=== PATIENT | male | born 1965 | race Caucasian/White ===

== ENCOUNTER 2018-01-23 01:12 | Emergency (ER) | payer MEDICAID ==
[~2018-01-23] VITALS: Ht 177.8 cm; Wt 74.8 kg
[2018-01-23] MEDS ORDERED: LORazepam 2MG/ML-1ML VIAL ONE (01:40)
[2018-01-23] MEDS ORDERED: HALOPERIDOL LACTATE 5 MG/ML INJ VIAL ONE (01:40)
[2018-01-23 01:43] LABS: Basophils # (auto) 0.1 uL; Basophils % (auto) 0.7 % (0.0-2.0); Eosinophils # (auto) 0.1 uL; Eosinophils % (auto) 0.8 % (0.0-7.0); Hematocrit 41.8 % (41.0-53.0); Hemoglobin 14.1 g/dL (13.5-17.5); Lymphocytes # (auto) 1.2 uL; Lymphocytes % (auto) 14.8 % (10.0-50.0); Mean Corpuscular Hemoglobin 32.3 pg (28.0-32.0); Mean Corpuscular Hgb Conc. 33.8 g/dL (32.0-36.0); Mean Corpuscular Volume 95.5 fL (80.0-100.0); Monocytes # (auto) 0.7 uL; Monocytes % (auto) 9.6 % (0.0-12.0); Neutrophils # (auto) 5.8 uL; Neutrophils % (auto) 74.1 % (37.0-80.0); Platelet Count (auto) 292 10^3/uL (140-450); Red Blood Cells 4.37 10^6/uL (4.5-5.90); White Blood Cell 7.8 10^3/uL (4.4-10.8)
[2018-01-23] MEDS ORDERED: LORazepam 2MG/ML-1ML VIAL IV ONE (01:45)
[2018-01-23] MEDS ORDERED: TETANUS IMMUNE GLOBULIN 250 UNIT/ML SYRG IM ONE (01:45)
[2018-01-23] MEDS ORDERED: HALOPERIDOL LACTATE 5 MG/ML INJ VIAL IM ONE (01:45)
[2018-01-23 01:58] LABS: Albumin 3.9 g/dL (3.4-5.0); BUN/Creatinine Ratio 10.4; Calcium 8.3 mg/dL (8.5-10.1); Potassium 3.5 mmol/L (3.5-5.1)
[2018-01-23 02:01] LABS: Bilirubin, Total 0.5 mg/dL (0.2-1.0); Total Protein 7.6 g/dL (6.4-8.2)
[2018-01-23] MEDS ORDERED: TETANUS-DIPTH-ACEL PERTUSSIS 0.5ML SYRG IM ONE (02:15)
[2018-01-23 02:48] LABS: Amphetamine Screen, Urine POSITIVE (NEGATIVE); Barbiturate Scree,Urine NEGATIVE (NEGATIVE); Benzodiazephine Screen, Urine NEGATIVE (NEGATIVE); Cannabinoid Screen, Urine POSITIVE (NEGATIVE); Cocaine Screen, Urine NEGATIVE (NEGATIVE); Opiate Scree,Urine NEGATIVE (NEGATIVE); Phencyclidine Screen, Urine NEGATIVE (NEGATIVE)
[2018-01-23 03:15] LABS: Urine Amorphous Crystal FEW /hpf (None Seen); Urine Bacteria FEW /hpf (None Seen); Urine Blood 1+ /uL (Negative); Urine Mucus FEW (None Seen); Urine Specific Gravity 1.025 (1.001-1.035); Urine WBC 1 /hpf (0 - 3)
[2018-01-23] MEDS ORDERED: cefTRIAXone 1GM/10ml IVPUSH 10 ML IV ONE (04:30)
[2018-01-23 06:50] VITALS: BP 138/100
== END 2018-01-23 09:34 | disposition home or self-care (01) ==
LOC: ER 01:12 → EDBD 01:12 → ER 09:34
DX: S01.01XA Laceration without foreign body of scalp, initial encounter (principal); F15.10 Other stimulant abuse, uncomplicated; J44.9 Chronic obstructive pulmonary disease, unspecified; F17.210 Nicotine dependence, cigarettes, uncomplicated; X58.XXXA Exposure to other specified factors, initial encounter; Y93.89 Activity, other specified; Y99.8 Other external cause status; Y92.524 Gas station as the place of occurrence of the external cause
CPT/HCPCS: 12002; 36415; 70450; 72125; 80053; 80307; 80320; 81001; 85025; 90471; 90715; 96372; 96374; 96375; 99285; J0696; J1630; J2060

== ENCOUNTER 2025-03-31 09:35 | Inpatient (IN) | payer MEDICAID, OTHER ==
[~2025-03-31] VITALS: Ht 175.3 cm; Wt 75.4 kg
[2025-03-31] MEDS: ADENOSINE 6 MG/2 ML INJ IV ONE ×3 (10:05→10:40)
--- NOTE | 2025-03-31 10:20 | ED.PDOC ---
SOB-HPI HPI Comments This is a 60 year-old male with a Hx of COPD, who presents to the ED via EMS for SOB as of yesterday. Per EMS, patient was found outside of a gas station, [facility] for SOB. Per EMS, patients BP was elevated at 203/115. Upon arrival to the ED, patient is SAT at 97% on nebulizer treatment. There are no further complaints or modifying factors at this time. Chief Complaint: Shortness of Breath Time Seen by MD: 09:44 Primary Care Provider: UNKNOWN Reviewed notes: Medications, Allergies Information Source: Patient, Emergency Med Personnel Mode of Arrival: EMS Severity: Moderate Timing: Days Duration: Since onset Past Medical History PAST MEDICAL HISTORY: COPD Surgical History: Denies all surgeries Family History Family History: Unknown Social History Smoker: Cigarettes, Greater Than 1 Pack/Day Alcohol: Occasionally Drugs: Denies Drug Use Lives In: Home Constitutional: denies: chills, diaphoresis, fatigue, fever, malaise, sweats, weakness, others EENTM: denies: blurred vision, double vision, ear bleeding, ear discharge, ear drainage, ear pain, ear ringing, eye pain, eye redness, hearing loss, mouth pain, mouth swelling, nasal discharge, nose bleeding, nose congestion, nose pain, photophobia, tearing, throat pain, throat swelling, voice changes, others Respiratory: reports: SOB at rest, shortness of breath, SOB with excertion; denies: cough, hemoptysis, orthopnea, stridor, wheezing, others Cardiovascular: denies: chest pain, dizzy spells, diaphoresis, Dyspnea on exertion, edema, irregular heart beat, left arm pain, lightheadedness, palpitations, PND, syncope, others Gastrointestinal: denies: abdomen distended, abdominal pain, blood streaked bowels, constipated, diarrhea, dysphagia, difficulty swallowing, hematemesis, melena, nausea, poor appetite, poor fluid intake, rectal bleeding, rectal pain, vomiting, others Genitourinary: denies: burning, dysuria, flank pain, frequency, hematuria, incontinence, penile discharge, penile sore, pain, testicle pain, testicle swelling, urgency, others Neurological: denies: dizziness, fainting, headache, left sided numbness, left sided weakness, numbness, paresthesia, pre-existing deficit, right sided numbness, right sided weakness, seizure, speech problems, tingling, tremors, weakness, others Musculoskeletal: denies: back pain, gout, joint pain, joint swelling, muscle pain, muscle stiffness, neck pain, others Integumetry: denies: bruises, change in color, change in hair/nails, dryness, laceration, lesions, lumps, rash, wounds, others Allergic/Immunocompromised: denies: Difficulty Healing, Frequent Infections, Hives, Itching, others Hematologic/Lymphatic: denies: anemia, blood clots, easy bleeding, easy bruising, swollen glands, others Endocrine: denies: excessive hunger, excessive sweating, excessive thirst, excessive urination, flushing, intolerance to cold, intolerance to heat, unexplained weight gain, unexplained weight loss, others Psychiatric: denies: anxiety, bipolar disorder, depression, hopeless, panic disorder, schizophrenia, sleepless, suicidal, others All Other Systems: Reviewed and Negative Physical Exam General Appearance: Moderate Distress HEENT: Normal ENT Inspection, Pharynx Normal, TMs Normal Neck: Full Range of Motion, Non-Tender, Normal, Normal Inspection Respiratory: Respiratory Distress, Other (Coarse breath sounds) Cardiovascular: Irregular, Tachycardia Breast Exam: Deferred Gastrointestinal: No Organomegaly, Non Tender, No Pulsatile Mass, Normal Bowel Sounds, Soft Genitalia: Deferred Pelvic: Deferred Rectal: Deferred Extremities: No calf tenderness, Normal capillary refill, Normal inspection, Normal range of motion, Non-tender, No pedal edema Musculoskeletal : Apperance: Normal Neurologic: Alert, sequins winder II-XII nml as Tested, No Motor Deficits, Normal Affect, Normal Mood, No Sensory Deficits Cerebellar Function: NOT DONE Reflexes: NOT DONE Skin: Dry, Normal Color, Warm Peripheral Pulses: 3+ Radial (R), 3+ Radial (L) Lymphatic: No Adenopathy Was a procedure done? Was a procedure done?: No Differential Dx Differential Diagnosis: Anxiety, Asthma, Bronchitis, CHF, COPD, Panic Attack, Sinusitis X-Ray, Labs, Meds, VS Vital Signs Date Time Temp Pulse Resp B/P (MAP) Pulse Ox O2 Delivery O2 Flow Rate FiO2 03/31/25 12:15 98 Nasal Cannula* 2 28 03/31/25 12:00 82 17 141/98 (112) 100 03/31/25 10:36 100 Nasal Cannula* 2 28 03/31/25 10:24 157 03/31/25 10:00 97.6 153 25 153/97 (115) 100 97.6 03/31/25 09:50 154 Lab Test 03/31/25 11:03 Range/Units White Blood Count 15.4 H 4.4-10.8 10^3/uL Red Blood Count 4.54 4.5-5.90 10^6/uL Hemoglobin 14.5 13.5-17.5 g/dL Hematocrit 43.3 41.0-53.0 % Mean Corpuscular Volume 95.2 80.0-100.0 fL Mean Corpuscular Hemoglobin 31.8 28.0-32.0 pg Mean Corpuscular Hemoglobin Concent 33.4 32.0-36.0 g/dL Red Cell Distribution Width 13.7 11.8-14.3 % Platelet Count 246 140-450 10^3/uL Mean Platelet Volume 7.6 6.9-10.8 fL Neutrophils (%) (Auto) 87.6 H 37.0-80.0 % Lymphocytes (%) (Auto) 4.4 L 10.0-50.0 % Monocytes (%) (Auto) 7.6 0.0-12.0 % Eosinophils (%) (Auto) 0.1 0.0-7.0 % Basophils (%) (Auto) 0.3 0.0-2.0 % Neutrophils # (Auto) 13.5 H 1.6-8.6 10 ^3/uL Lymphocytes # (Auto) 0.7 0.4-5.4 10 ^3/uL Monocytes # (Auto) 1.2 0-1.3 10 ^3/uL Eosinophils # (Auto) 0 0-0.8 10 ^3/uL Basophils # (Auto) 0 0-0.2 10 ^3/uL Nucleated Red Blood Cells 0.0 % Sodium Level 138 136-145 mmol/L Potassium Level 4.1 3.5-5.1 mmol/L Chloride Level 102 98-107 mmol/L Carbon Dioxide Level 26 20-31 mmol/L Anion Gap 10 5-15 Blood Urea Nitrogen 10 9-23 mg/dL Creatinine 0.85 0.700-1.30 mg/dL Glomerular Filtration Rate Calc 100 >90 mL/min BUN/Creatinine Ratio 11.8 10.0-20.0 Serum Glucose 159 H 74-106 mg/dL Calcium Level 9.2 8.7-10.4 mg/dL Total Bilirubin 0.7 0.2-1.0 mg/dL Aspartate Amino Transferase (AST) 23 13-40 U/L Alanine Aminotransferase (ALT) 35 7-40 U/L Alkaline Phosphatase 86 46-116 U/L Total Protein 7.2 5.7-8.2 g/dL Albumin 4.1 3.2-4.8 g/dL Current Medications Medications (Trade) Dose Ordered Sig/Ian Route Start Time Stop Time Status Last Admin Adenosine (Adenosine) 6 mg ONCE ONCE IV 03/31/25 10:45 03/31/25 10:46 DC 03/31/25 10:36 Amiodarone HCl 100 ml @ 600 mls/hr ONCE ONCE IV 03/31/25 10:45 03/31/25 10:54 DC 03/31/25 10:36 Amiodarone HCl 250 ml @ 33.33 mls/ hr Q7H31M ONCE IV 03/31/25 10:45 03/31/25 18:15 03/31/25 10:52 Sodium Chloride 1,000 ml @ 1,000 mls/hr Q1H ONCE IV 03/31/25 11:00 03/31/25 11:59 DC 03/31/25 10:53 Sodium Chloride 1,000 ml @ 150 mls/hr Q6H40M ONCE IV 03/31/25 11:00 03/31/25 17:39 03/31/25 11:00 Patient alert. Placed on oxygen. Came in because of shortness a breath. Answering questions. EKG reviewed does show rapid heart rate. Was given adenosine. Rhythm is atrial fibrillation with flutter. Placed amiodarone. Establish intravenous access. Was given fluids. Explained to the patient. Continue monitoring. Time of 1ST Reevaluation: 11:02 Reevaluation 1ST: Unchanged Patient Education/Counseling: Diagnosis, Treatment Family Education/Counseling: No Family Present SEPSIS Sepsis Screen Physician Orders Amiodarone 450mg/250ml Ae (Cordarone) (03/31/25 10:45) Amiodarone 450mg/250ml Ae (Cordarone) (03/31/25 16:45) Electrocardigram (03/31/25 10:45) Electrocardigram (03/31/25 11:45) Electrocardigram (03/31/25 13:45) Chest Portable (03/31/25 10:47) Urinalysis (03/31/25 10:47) Sodium Chloride 0.9% (03/31/25 11:00) Vital Signs Date Time Temp Pulse Resp B/P (MAP) Pulse Ox O2 Delivery O2 Flow Rate FiO2 03/31/25 12:15 98 Nasal Cannula* 2 28 03/31/25 12:00 82 17 141/98 (112) 100 03/31/25 10:36 100 Nasal Cannula* 2 28 03/31/25 10:24 157 03/31/25 10:00 97.6 153 25 153/97 (115) 100 97.6 03/31/25 09:50 154 Laboratory Tests Test 03/31/25 11:03 White Blood Count 15.4 10^3/uL (4.4-10.8) H Medications Medications Dose Ordered Sig/Ian Route Start Time Stop Time Status Last Admin Dose Admin Adenosine 6 mg ONCE ONCE IV 03/31/25 10:45 03/31/25 10:46 DC 03/31/25 10:36 Amiodarone HCl 100 ml @ 600 mls/hr ONCE ONCE IV 03/31/25 10:45 03/31/25 10:54 DC 03/31/25 10:36 Amiodarone HCl 250 ml @ 33.33 mls/ hr Q7H31M ONCE IV 03/31/25 10:45 03/31/25 18:15 03/31/25 10:52 Sodium Chloride 1,000 ml @ 150 mls/hr Q6H40M ONCE IV 03/31/25 11:00 03/31/25 17:39 03/31/25 11:00 Sodium Chloride 1,000 ml @ 1,000 mls/hr Q1H ONCE IV 03/31/25 11:00 03/31/25 11:59 DC 03/31/25 10:53 Departure 1 Departure Time of Disposition: 12:31 Impression: Primary Impression: Acute respiratory failure Qualified Codes: J96.01 - Acute respiratory failure with hypoxia Additional Impression: Atrial fibrillation Qualified Codes: I48.0 - Paroxysmal atrial fibrillation Disposition: ADMITTED INPATIENT Admit to: Med Surg Condition: Guarded e-Prescriptions No Active Prescriptions or Reported Meds Critical Care Note Critical Care Time?: Yes (90 min-critical care time only) Stability Stability form required: No Heart Score Heart Score: Heart Score Response (Comments) Value History Moderate Suspicious 1 EKG Normal 0 Age 45-64 1 Risk Factors 1 or 2 risk factors 1 Troponin Normal limit 0 Total 3 I personally scribed for HANNY WILSON MD ([facility]) on 03/31/25 at 10:20. Electronically submitted by Madelyn Sinha ([facility]). HANNY WILSON MD Mar 31, 2025 10:20
[2025-03-31] MEDS: AMIODARONE HCL (50 MG/ ML) 3 ML VIAL IV ONE (10:35)
[2025-03-31 10:36] VITALS: O2SAT 100
[2025-03-31] MEDS: AMIODARONE BOLUS KIT 100 ML IV ONE ×2 (10:36→10:40)
[2025-03-31] MEDS: SODIUM CHLORIDE 0.9% 1,000 ML IV ONE ×2 (10:53→11:00)
[2025-03-31 11:11] LABS: Hematocrit 43.3 % (41.0-53.0); Hemoglobin 14.5 g/dL (13.5-17.5); Mean Corpuscular Hemoglobin 31.8 pg (28.0-32.0); Mean Corpuscular Volume 95.2 fL (80.0-100.0); Nucleated Red Blood Cells % 0.0 %
--- NOTE | 2025-03-31 11:17 | DVH ---
CLINICAL HISTORY: sob TECHNIQUE: Single view of the chest was obtained. COMPARISON: None FINDINGS: Evaluation is limited, given the lung apices were excluded on this study. The heart size and pulmonary vasculature are normal. The lungs are clear. IMPRESSION: Limited exam with no acute cardiopulmonary process seen. Please read above.
[2025-03-31 11:28] LABS: Alanine Aminotransferase 35 U/L (7-40); Albumin 4.1 g/dL (3.2-4.8); Anion Gap 10 (5-15); BUN/Creatinine Ratio 11.8 (10.0-20.0); Blood Urea Nitrogen 10 mg/dL (9-23); Calcium 9.2 mg/dL (8.7-10.4); Carbon Dioxide 26 mmol/L (20-31); Chloride 102 mmol/L (98-107); Potassium 4.1 mmol/L (3.5-5.1); Sodium 138 mmol/L (136-145); Total Protein 7.2 g/dL (5.7-8.2)
[2025-03-31 11:29] LABS: Bilirubin, Total 0.7 mg/dL (0.2-1.0); Glucose 159 mg/dL (74-106)
[2025-03-31 11:46] LABS: Alkaline Phosphatase 86 U/L (46-116)
[2025-03-31] MEDS: IOHEXOL 350 MG/ML 100ML IJ ONE (12:56)
[2025-03-31] MEDS ORDERED: CEFEPIME 1GM/50ML 50 ML IV ONE (13:00)
[2025-03-31] MEDS ORDERED: ENOXAPARIN SOD 100 MG/1 ML SYRINGE SC ONE (13:00)
[2025-03-31] MEDS ORDERED: ONDANSETRON HCL 4 MG/2 ML VIAL IV PRN (13:00)
[2025-03-31] MEDS ORDERED: MORPHINE SULFATE INJ 2 MG/ml SYRG IV PRN ×2 (13:00)
[2025-03-31] MEDS ORDERED: ACETAMINOPHEN 325 MG TAB PO PRN (13:00)
[2025-03-31] MEDS ORDERED: NITROGLYCERIN 0.4 MG SL TAB SL PRN (13:00)
[2025-03-31 13:23] LABS: Triglycerides 54.0 mg/dL (< 150)
[2025-03-31 13:24] LABS: INR 1.03 (0.9-1.15); Magnesium 1.8 mg/dL (1.6-2.6); Partial Thromboplastin Time 29.5 SEC (24.5-34.5); Prothrombin Time 10.9 sec (9.3-11.8)
[2025-03-31 13:25] LABS: Cholesterol 174.0 mg/dL (< 200); HDL Cholesterol 96.0 mg/dL (40-59)
--- NOTE | 2025-03-31 13:33 | DVHHPRES ---
History of Present Illness Resident Creating Document: ANGIE SANON History of Present Illness Sergio Nelson is a 60 year old male patient who presents to the ED with chief complaint of sudden dyspnea Functional Class IV which started approximately 24 hours, it has been constant, did not relieved with inhalers, prompting his visit to the ED. Patient reports associated chills, productive cough with yellow phlegm and hearing wheezing. Patient has had previous episodes similar to this one, but have been relieved by inhalers. Last hospitalization due to COPD exacerbation was over 10 years ago. Denies any other associated symptom. Past medical history: Asthma/emphysema/COPD Surgical history: Left knee surgery Family history: Mother had breast cancer, father had "leg" cancer Social history: Lives in [place], he is homeless (he has not know next of kin, he has a brother in [place] but does not have a phone number). Ex tobacco abuse (30 pack-year history of smoking), currently smokes marijuana. Occasionally use meth. Drinks one beer a day. Denies any other drug abuse. Allergies: Penicillin Home medication: Albuterol Patient seen and examined at bedside. Currently has no new complaint. Admitted for further evaluation. Past Medical History Per HPI Past Surgical History Per HPI Family History Per HPI Past Social History Per HPI Review of Systems Review of Systems Per HPI Allergies: Coded Allergies: Penicillins (Verified Allergy, Unknown, 06/05/15) Medications Current Medications Medications Dose Ordered Sig/[facility] Route Start Time Stop Time Status Last Admin Dose Admin Amiodarone HCl 250 ml @ 16.66 mls/ hr Q15H1M IV 03/31/25 16:45 Enoxaparin Sodium 80 mg Q12HR SC 03/31/25 22:00 Acetaminophen 325 mg Q4HP PRN PO 03/31/25 13:00 Ondansetron HCl 4 mg Q4HP PRN IV 03/31/25 13:00 Morphine Sulfate 2 mg Q4HPRN PRN IV 03/31/25 13:00 Nitroglycerin 0.4 mg Q5MINP PRN SL 03/31/25 13:00 Morphine Sulfate 2 mg Q30M PRN IV 03/31/25 13:00 Azithromycin 250 ml @ 125 mls/hr DAILY IV 04/01/25 10:00 Cefepime HCl 50 ml @ 12.5 mls/hr Q8HR IV 03/31/25 14:00 UNV Methylprednisolone Sodium Succinate 40 mg BID IV 03/31/25 22:00 Exam Vital Signs Vital Signs Date Time Temp Pulse Resp B/P (MAP) Pulse Ox O2 Delivery O2 Flow Rate FiO2 03/31/25 12:15 98 Nasal Cannula* 2 28 03/31/25 12:00 82 17 141/98 (112) 03/31/25 10:00 97.6 97.6 Exam Patient lying in bed, in no acute distress General: Lucid, afebrile, mucosae are moist Cardiovascular: Normal S1 and S2. No murmurs, gallops or rubs Respiratory: Normal ventilation mechanics. Diffuse wheezing with coarse rhonchus predominantly on right base. Abdomen: Soft, nontender, no organomegaly, normal bowel sounds MSK/skin: Mobilizes 4 limbs. Skin is dry and warm Neurological: Oriented in 3 spheres. No motor no sensitive deficits. Pupils are isocoric and reactive Labs/Xrays Labs Test 03/31/25 11:03 Range/Units White Blood Count 15.4 H 4.4-10.8 10^3/uL Red Blood Count 4.54 4.5-5.90 10^6/uL Hemoglobin 14.5 13.5-17.5 g/dL Hematocrit 43.3 41.0-53.0 % Mean Corpuscular Volume 95.2 80.0-100.0 fL Mean Corpuscular Hemoglobin 31.8 28.0-32.0 pg Mean Corpuscular Hemoglobin Concent 33.4 32.0-36.0 g/dL Red Cell Distribution Width 13.7 11.8-14.3 % Platelet Count 246 140-450 10^3/uL Mean Platelet Volume 7.6 6.9-10.8 fL Neutrophils (%) (Auto) 87.6 H 37.0-80.0 % Lymphocytes (%) (Auto) 4.4 L 10.0-50.0 % Monocytes (%) (Auto) 7.6 0.0-12.0 % Eosinophils (%) (Auto) 0.1 0.0-7.0 % Basophils (%) (Auto) 0.3 0.0-2.0 % Neutrophils # (Auto) 13.5 H 1.6-8.6 10 ^3/uL Lymphocytes # (Auto) 0.7 0.4-5.4 10 ^3/uL Monocytes # (Auto) 1.2 0-1.3 10 ^3/uL Eosinophils # (Auto) 0 0-0.8 10 ^3/uL Basophils # (Auto) 0 0-0.2 10 ^3/uL Nucleated Red Blood Cells 0.0 % Prothrombin Time 10.9 9.3-11.8 sec Prothrombin Time INR 1.03 0.9-1.15 Activated Partial Thromboplast Time 29.5 24.5-34.5 SEC Sodium Level 138 136-145 mmol/L Potassium Level 4.1 3.5-5.1 mmol/L Chloride Level 102 98-107 mmol/L Carbon Dioxide Level 26 20-31 mmol/L Anion Gap 10 5-15 Blood Urea Nitrogen 10 9-23 mg/dL Creatinine 0.85 0.700-1.30 mg/dL Glomerular Filtration Rate Calc 100 >90 mL/min BUN/Creatinine Ratio 11.8 10.0-20.0 Serum Glucose 159 H 74-106 mg/dL Hemoglobin A1c 5.6 <5.7 % A1C Calcium Level 9.2 8.7-10.4 mg/dL Phosphorus Level 2.5 2.4-5.1 mg/dL Magnesium Level 1.8 1.6-2.6 mg/dL Total Bilirubin 0.7 0.2-1.0 mg/dL Aspartate Amino Transferase (AST) 23 13-40 U/L Alanine Aminotransferase (ALT) 35 7-40 U/L Alkaline Phosphatase 86 46-116 U/L Total Protein 7.2 5.7-8.2 g/dL Albumin 4.1 3.2-4.8 g/dL Triglycerides Level 54 < 150 mg/dL Cholesterol Level 174 < 200 mg/dL LDL Cholesterol 61 < 100 mg/dL HDL Cholesterol 96 H 40-59 mg/dL SEPSIS Sepsis Screen Date sepsis recognized/suspect: Mar 31, 2025 Time Sepsis recognized/suspect: 1212 Recent Procedure: No On Antibiotic Therapy: No Respiratory Rate >20: No Heart Rate >90: No Temp<36 C (96.8 F) or >38.3 C: No SBP <90 or MAP <65 mmHG: No New Acute Mental Status Change: No Is the patient on CPAP, BIPAP,: No Physician Orders Amiodarone 450mg/250ml Ae (Cordarone) (03/31/25 10:45) Amiodarone 450mg/250ml Ae (Cordarone) (03/31/25 16:45) Electrocardigram (03/31/25 10:45) Electrocardigram (03/31/25 11:45) Electrocardigram (03/31/25 13:45) Chest Portable (03/31/25 10:47) Urinalysis (03/31/25 10:47) Sodium Chloride 0.9% (03/31/25 11:00) Ct Angio Chest Contrast (03/31/25 12:50) Vitamin D, 25-Hydroxy (03/31/25 12:50) Vitamin B12 (03/31/25 12:50) Thyroid Stimulating Hormone (03/31/25 12:50) Lactic Acid W/ Reflex Order (03/31/25 12:50) Drug Screen (03/31/25 12:50) Enoxaparin Sodium (Lovenox) (03/31/25 22:00) Admit (03/31/25 12:52) Code Status (03/31/25 12:52) Acetaminophen Tablet (Tylenol Tablet) (03/31/25 13:00) Ondansetron Hcl (Zofran) (03/31/25 13:00) Complete Blood Count (04/01/25 04:00) Comprehensive Metabolic Panel (04/01/25 04:00) Npo (Nothing By Mouth) Diet (03/31/25 Lunch) Echo 2d Mode Cardiac Dop (03/31/25 12:52) Morphine Sulfate Injection (03/31/25 13:00) Nitroglycerin Sublingual (Ntrostat Subli (03/31/25 13:00) Morphine Sulfate Injection (03/31/25 13:00) Oxygen By Nasal Cannula (03/31/25 12:52) Stat Ekg For Chest Pain (03/31/25 12:52) Notify Md Of Changes From Base (03/31/25 12:52) Employee Benefits Specialist For 24 Hours (03/31/25 12:52) Emergency Dysrhythmia Protocol (03/31/25 12:52) Rhythm Strips Once Every Shift (03/31/25 12:52) Blood Culture (03/31/25 12:52) Respiratory Culture W/ Gs (03/31/25 12:52) Covid19 Antigen Nereida (03/31/25 ) Rapid Influenza A&B (03/31/25 12:52) Mrsa Screen (03/31/25 12:52) Urine Bacterial Culture (03/31/25 12:52) Azithromycin 500mg/250ml (Zithromax 500m (03/31/25 13:00) Azithromycin 500mg/250ml (Zithromax 500m (04/01/25 10:00) Cefepime 1gm/50ml (Maxipime 1gm/50ml) (03/31/25 14:00) Cefepime 1gm/50ml (Maxipime 1gm/50ml) (03/31/25 13:00) Methylprednisolone Sod Succ (Solu Medrol (03/31/25 22:00) Vital Signs Date Time Temp Pulse Resp B/P (MAP) Pulse Ox O2 Delivery O2 Flow Rate FiO2 03/31/25 12:15 98 Nasal Cannula* 2 28 03/31/25 12:00 82 17 141/98 (112) 100 03/31/25 12:00 89 03/31/25 10:36 100 Nasal Cannula* 2 28 03/31/25 10:24 157 03/31/25 10:00 97.6 153 25 153/97 (115) 100 97.6 03/31/25 09:50 154 Laboratory Tests Test 03/31/25 11:03 White Blood Count 15.4 10^3/uL (4.4-10.8) H Medications Medications Dose Ordered Sig/Ian Route Start Time Stop Time Status Last Admin Dose Admin Adenosine 6 mg ONCE ONCE IV 03/31/25 10:45 03/31/25 10:46 DC 03/31/25 10:36 6 MG Amiodarone HCl 100 ml @ 600 mls/hr ONCE ONCE IV 03/31/25 10:45 03/31/25 10:54 DC 03/31/25 10:36 600 MLS/HR Amiodarone HCl 250 ml @ 33.33 mls/ hr Q7H31M ONCE IV 03/31/25 10:45 03/31/25 18:15 03/31/25 10:52 33.33 MLS/HR Sodium Chloride 1,000 ml @ 150 mls/hr Q6H40M ONCE IV 03/31/25 11:00 03/31/25 17:39 03/31/25 11:00 150 MLS/HR Sodium Chloride 1,000 ml @ 1,000 mls/hr Q1H ONCE IV 03/31/25 11:00 03/31/25 11:59 DC 03/31/25 10:53 1,000 MLS/HR Assessment/Plan Assessment/Plan ASSESSMENT Acute respiratory failure Sepsis due to pneumonia Community-acquired pneumonia Gram-positive/Gram-negative COPD exacerbation Newly diagnosed paroxysmal atrial flutter RVR (chads Vasc 0) - secondary hypercoagulability state Rule out pulmonary embolism Polysubstance abuse Homelessness PLAN Patient admitted to telemetry Currently on oxygen therapy with nasal cannula 2 L/min Currently under empiric IV antibiotic (azithromycin and cefepime) Indicated IV fluids, IV steroids and bronchodilators. Patient on amiodarone drip, currently converted to sinus rhythm. Indicated therapeutic enoxaparin. Recommend and cessation of polysubstance abuse (methamphetamine, marijuana in alcohol) Ordered angio CT of chest to rule out pulmonary embolism Consulted social group worker for evaluation of placement. Goals of care discussed with patient for over 18 minutes: Full code status Discussed plan with Dr. Medrano, patient and nurses: Patient admitted to telemetry. Currently on oxygen therapy, IV antibiotics, IV fluids, IV steroids therapeutic enoxaparin, amiodarone drip and bronchodilators. Ordered angio CT to rule out pulmonary embolism. Pending social service evaluation. Patient has poor prognosis. Plan discussed with: Patient, Other (Nurses) My Orders Orders - ANGIE SANON RESIDENT Procedure Category Date Status Time Ct Angio Chest CT 03/31/25 Taken Contrast 12:50 Vitamin D, 25-Hydroxy LAB 03/31/25 In Process 12:50 Vitamin B12 LAB 03/31/25 In Process 12:50 Thyroid Stimulating LAB 03/31/25 In Process Hormone 12:50 Lactic Acid W/ Reflex LAB 03/31/25 Logged Order 12:50 Drug Screen LAB 03/31/25 Logged 12:50 Enoxaparin Sodium PHA 03/31/25 In Process (Lovenox) 22:00 Admit ADMIT 03/31/25 Transmitted 12:52 Code Status CODE 03/31/25 Transmitted 12:52 Acetaminophen Tablet PHA 03/31/25 In Process (Tylenol Tablet) 13:00 Ondansetron Hcl PHA 03/31/25 In Process (Zofran) 13:00 Complete Blood Count LAB 04/01/25 Verified 04:00 Comprehensive LAB 04/01/25 Verified Metabolic Panel 04:00 Npo (Nothing By DIET 03/31/25 Transmitted Mouth) Diet Lunch Echo 2d Mode Cardiac US 03/31/25 Logged DOP 12:52 Morphine Sulfate PHA 03/31/25 In Process Injection 13:00 Nitroglycerin PHA 03/31/25 In Process Sublingual (Ntrostat 13:00 Morphine Sulfate PHA 03/31/25 In Process Injection 13:00 Oxygen By Nasal RT 03/31/25 Transmitted Cannula 12:52 Stat Ekg For Chest WILLAM 03/31/25 In Process Pain 12:52 Notify Of Changes WILLAM 03/31/25 In Process From Base 12:52 Employee Benefits Specialist For WILLAM 03/31/25 In Process 24 Hours 12:52 Emergency Dysrhythmia WILLAM 03/31/25 In Process Protocol 12:52 Rhythm Strips Once WILLAM 03/31/25 In Process Every Shift 12:52 Blood Culture FARHEEN 03/31/25 Logged 12:52 Respiratory Culture FARHEEN 03/31/25 Logged W/ Gs 12:52 Covid19 Antigen Nereida LAB 03/31/25 Logged Rapid Influenza A&B LAB 03/31/25 Logged 12:52 Mrsa Screen FARHEEN 03/31/25 Logged 12:52 Urine Bacterial FARHEEN 03/31/25 Logged Culture 12:52 Azithromycin PHA 03/31/25 In Process 500mg/250ml 13:00 Azithromycin PHA 04/01/25 In Process 500mg/250ml 10:00 Cefepime 1gm/50ml PHA 03/31/25 Logged (Maxipime 1gm/50ml) 14:00 Cefepime 1gm/50ml PHA 03/31/25 Logged (Maxipime 1gm/50ml) 13:00 Methylprednisolone PHA 03/31/25 In Process Sod Succ (Solu Medrol 22:00 Date of Service: Mar 31, 2025 Billing Provider: ROCK MEDRANO MD Common Visit Codes: [id number] INP/OBS CARE (HIGH) Secondary Visit Codes: [id number] CARE PLAN 30 MINUTES ANGIE SANON Mar 31, 2025 13:33
[2025-03-31] MEDS: SODIUM CHLORIDE 0.9% 250 ML IV ONE (13:45)
[2025-03-31] MEDS: SODIUM CHLORIDE 0.9% 1,000 ML IV SCH (13:45)
--- NOTE | 2025-03-31 13:48 | DVH ---
Indication: Rule out PE Technique: CT axial images of the chest are obtained with intravenous contrast per CT angiogram protocol. Coronal and sagittal reformats were obtained. Radiation Dose Information: CTDI volume is 6.68 mGy. Dose-length product is 299.9 mGy*cm Comparison: None FINDINGS: No filling defect within the main left and right pulmonary arteries. Segmental and subsegmental branches suboptimally opacified/ characterized. Trachea patent. No pneumothorax. Mild right upper lobe ground-glass opacities /tree-in-bud nodularity. No lobar consolidation present. Right lower lobe atelectasis. Pulmonary emphysematous changes. The heart is normal in size. Right hilar lymph node measuring 1.6 cm. Left hilar lymph node measuring 1.0 cm. No supraclavicular or axillary lymphadenopathy. No aggressive osseous process. IMPRESSION: No evidence for large pulmonary embolism. Mild right upper lobe ground-glass opacities with tree-in-bud nodularity which can be secondary to infectious, inflammatory, hypoventilatory etiologies. Hilar lymphadenopathy which can be secondary to infectious, inflammatory, neoplastic etiology. Other findings as described
[2025-03-31 13:53] VITALS: BP 141/98; PULSE 82; RESP 17; TEMP 97.6; O2SAT 98
[2025-03-31] MEDS: CEFEPIME 1GM/50ML 50 ML IV SCH (14:00)
[2025-03-31 14:25] LABS: Lactic Acid w/Reflex 2.4 mmol/L (0.4-2.0)
[2025-03-31 14:35] LABS: Urine Protein, UAD Negative (Negative)
[2025-03-31 14:51] LABS: Amphetamine Screen, Urine Pos (NEGATIVE); Barbiturate Scree,Urine Neg (NEGATIVE); Benzodiazephine Screen, Urine Neg (NEGATIVE); Cannabinoid Screen, Urine Pos (NEGATIVE); Cocaine Screen, Urine Neg (NEGATIVE); Opiate Scree,Urine Neg (NEGATIVE); Phencyclidine Screen, Urine Neg (NEGATIVE)
[2025-03-31] MEDS: methylPREDNISolone SOD SUCC 40 MG/ML VL IV ONE (15:13)
[2025-03-31] MEDS: ENOXAPARIN SOD 80 MG/0.8ML SYRINGE SC ONE (15:14)
[2025-03-31] MEDS: AZITHROMYCIN 500MG/250ML 250 ML IV ONE (15:28)
[2025-03-31 19:18] VITALS: PULSE 72; RESP 28; O2SAT 97
[2025-03-31] MEDS: LEVALBUTEROL HCL 1.25 MG/3 ML NEB NEB SCH (19:18)
[2025-03-31] MEDS: IPRATROPIUM BROM 0.5 MG/2.5ML INH SOL NEB SCH (19:18)
[2025-03-31 19:24] VITALS: PULSE 70; RESP 25; O2SAT 99
[2025-03-31 21:56] LABS: COVID19 ANTIGEN SOFIA FIA NEGATIVE (NEGATIVE)
[2025-03-31] MEDS: ENOXAPARIN SOD 80 MG/0.8ML SYRINGE SC SCH (23:07)
[2025-03-31] MEDS: methylPREDNISolone SOD SUCC 40 MG/ML VL ONE (23:07)
[2025-03-31] MEDS: methylPREDNISolone SOD SUCC 40 MG/ML VL IV SCH (23:07)
[2025-03-31 23:36] VITALS: BP 149/96; PULSE 67; RESP 19; TEMP 98.6; O2SAT 93
[2025-03-31 23:56] VITALS: PULSE 69; RESP 18; O2SAT 94
[2025-04-01] VITALS (19 sets, daily range): BP systolic 135–174; BP diastolic 80–103; PULSE 67–89; RESP 17–24; TEMP 97.4–98.4; O2SAT 90–100
[2025-04-01 05:32] LABS: Hematocrit 41.4 % (41.0-53.0); Hemoglobin 14.0 g/dL (13.5-17.5); Mean Corpuscular Hemoglobin 31.7 pg (28.0-32.0); Mean Corpuscular Volume 93.5 fL (80.0-100.0); Nucleated Red Blood Cells % 0.0 %
[2025-04-01 05:47] LABS: Alanine Aminotransferase 29 U/L (7-40); Alkaline Phosphatase 80 U/L (46-116); Anion Gap 8 (5-15); BUN/Creatinine Ratio 14.1 (10.0-20.0); Blood Urea Nitrogen 13 mg/dL (9-23); Calcium 9.3 mg/dL (8.7-10.4); Carbon Dioxide 27 mmol/L (20-31); Chloride 102 mmol/L (98-107); Potassium 4.1 mmol/L (3.5-5.1); Sodium 137 mmol/L (136-145); Total Protein 7.1 g/dL (5.7-8.2)
[2025-04-01 05:48] LABS: Albumin 4.1 g/dL (3.2-4.8); Bilirubin, Total 0.6 mg/dL (0.2-1.0)
[2025-04-01 05:49] LABS: Glucose 151 mg/dL (74-106)
--- NOTE | 2025-04-01 07:12 | ECG ---
[facility] Test Date: 2025-03-31 Test Time: 09:50:38 Pat Name: NICOLE SHARMA Department: ED Room: 0239T A Gender: M Trimmer Helper: arpan : 1965 Requested By: HANNY WILSON Order Number: [id number] Reading MD: Keven Hobbs Measurements Intervals [place] Rate: 154 P: 0 MS: 0 QRS: -67 QRSD: 78 T: 33 QT: 286 QTc: 458 Interpretive Statements Atrial flutter/fibrillation LAD, consider left anterior fascicular block Anterior infarct, old Nonspecific T abnormalities, inferior leads Baseline wander in lead(s) V2 Electronically Signed On 04-03-2025 15:00:46 PST by Keven Hobbs Please click the below link to view image of tracing.
--- NOTE | 2025-04-01 09:20 | DVHSR ---
APPROVED REPORT EXAM: LIMITED Two-dimensional and M-mode echocardiogram with Doppler and color Doppler. Blood Pressure: 141/98 mmHg INDICATION afib RISK FACTORS Height: 72, Weight: 180 DIMENSIONS LVDd 3.7 (3.8-5.7cm) LA (2D) 3.6 (1.9-4.0cm) Aortic Root 3.9 (2.0-3.7cm) LVDs 2.4 (2.5-4.0cm) LA (MM) (1.9-4.0cm) Aortic Cusp Exc 1.6 (1.5-2.0cm) EF (%) 65.0 (55-70%) Rt. Atrium 3.3 (1.9-4.0cm) Asc. Aorta cm IVSd 0.9 (0.7-1.1cm) RV (D) 4.7 (1.8-2.4cm) PWd 1.0 (0.7-1.1cm) Mitral Valve Mitral Mitral Stenosis E wave 0.68m/s MV Mean GR. mmHg A wave 0.49m/s MV Peak GR. mmHg E/A ratio 1.4 2D MVA cm2 DECEL Time 182ms PRESS 1/2 Time ms Aortic Valve Aortic Valve Aortic Stenosis V1 0.87m/s AO Mean GR. 3mmHg V2 1.02m/s AO Peak GR. 4mmHg LVOT Diameter 2.1 (1.8-2.4cm) Doppler WILI 2.95cm2 Pulmonic Valve V2 1.00m/s Tricuspid Valve TR Velocity 2.92m/s RVSP 37mmHg Other Information Quality : Technically Limited Rhythm : Technically limited study due to body habitus. pt breathing shallow Conclusion lvef 60% by visual estimate abnormal anteroseptal bounce may be related to dysrhythmia normal rv function normal atria no severe valve abnormalities noted
[2025-04-01] MEDS: methylPREDNISolone SOD SUCC 40 MG/ML VL ONE (09:28)
[2025-04-01] MEDS: ENOXAPARIN SOD 80 MG/0.8ML SYRINGE SC SCH (09:30)
[2025-04-01] MEDS: AZITHROMYCIN 500MG/250ML 250 ML IV SCH (10:50)
--- NOTE | 2025-04-01 16:01 | DVHPN2 ---
Subjective Patient is here for possible acute asthma as well as COPD exacerbation. 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 Medications Current Medications Medications Dose Ordered Sig/Ian Route Start Time Stop Time Status Last Admin Dose Admin Amiodarone HCl 250 ml @ 16.66 mls/ hr Q15H1M IV 03/31/25 16:45 04/01/25 08:57 16.66 MLS/HR Acetaminophen 325 mg Q4HP PRN PO 03/31/25 13:00 Ondansetron HCl 4 mg Q4HP PRN IV 03/31/25 13:00 Morphine Sulfate 2 mg Q4HPRN PRN IV 03/31/25 13:00 Nitroglycerin 0.4 mg Q5MINP PRN SL 03/31/25 13:00 Morphine Sulfate 2 mg Q30M PRN IV 03/31/25 13:00 Azithromycin 250 ml @ 125 mls/hr DAILY IV 04/01/25 10:00 04/01/25 10:50 125 MLS/HR Cefepime HCl 50 ml @ 12.5 mls/hr Q8HR IV 03/31/25 14:00 Hold Methylprednisolone Sodium Succinate 40 mg BID IV 03/31/25 22:00 04/01/25 09:23 40 MG Sodium Chloride 1,000 ml @ 60 mls/hr [id number] IV 03/31/25 13:45 04/01/25 05:45 60 MLS/HR Ipratropium [place] 0.5 mg Q6HWA NEB 03/31/25 18:00 04/01/25 11:21 0.5 MG Levalbuterol HCl 0.625 mg Q6HR NEB 03/31/25 18:00 04/01/25 11:21 0.625 MG Enoxaparin Sodium 70 mg Q12HR SC 04/01/25 10:00 04/01/25 09:30 70 MG Laboratory Results Laboratory Tests 04/01/25 04:48 Chemistry Test 04/01/25 04:48 Albumin 4.1 g/dL (3.2-4.8) Calcium Level 9.3 mg/dL (8.7-10.4) Total Protein 7.1 g/dL (5.7-8.2) LFT Test 04/01/25 04:48 Alanine Aminotransferase (ALT) 29 U/L (7-40) Alkaline Phosphatase 80 U/L (46-116) Aspartate Amino Transferase (AST) 19 U/L (13-40) Total Bilirubin 0.6 mg/dL (0.2-1.0) Urinalysis Test 03/31/25 12:40 Urine Color Light-yellow (Yellow) Urine Clarity Clear (Clear) Urine pH 6.0 (5.0-9.0) Urine Specific [place] 1.017 (1.001-1.035) Urine Protein Negative (Negative) Urine Ketones Negative (Negative) Urine Blood 1+ /uL (Negative) H Urine Nitrite Negative (Negative) Urine Bilirubin Negative (Negative) Urine Urobilinogen Normal mg/dL (Negative) Urine Leukocyte Esterase Negative /uL (Negative) Urine RBC 7 /hpf (0 - 3) Urine Microscopic WBC 1 /HPF (0-3) Urine Squamous Epithelial Cells None seen /hpf (<5) Urine Bacteria None seen /hpf (None Seen) Urine Glucose 1+ mg/dL (Normal) H Microbiology Microbiology Date/Time Source Procedure Growth Status 03/31/25 13:20 Blood Blood Culture - Preliminary NO GROWTH AFTER 24 HOURS OF INCUBATION. Resulted 03/31/25 12:40 Voided Urine Urine Culture - Preliminary Resulted Assessment/Plan Assessment/Plan 60-year-old male with a known history of chronic asthma, COPD, chronic tobacco use disorder 30 pack-year history, currently smokes marijuana presented to the hospital with shortness of breaths found to have 1. Acute hypoxic respiratory failure secondary to pneumonia 2. Sepsis secondary to pneumonia 3. Acute asthma/COPD exacerbation 4. AFib with a RVR currently on amiodarone drip 5. Ruled out pulmonary embolism 6. Chronic marijuana use 7. Homelessness -O2 supplementation, IV antibiotics, med nebs, IV Solu-Medrol Plan discussed with: Patient My Orders Orders - ROHAN SUTTON MD Procedure Category Date Status Time Cardiac DIET 04/01/25 Transmitted Diet-2gna,Lofat,Lochol Dinner Problem List: (1) Respiratory insufficiency (2) Chronic obstructive pulmonary disease with acute exacerbation (3) Acute respiratory failure (4) Atrial fibrillation Date of Service: Apr 01, 2025 Billing Provider: ROHAN SUTTON MD Common Visit Codes: [id number] INP/OBS CARE(HIGH) ROHAN SUTTON MD Apr 01, 2025 16:00
[2025-04-01] MEDS: methylPREDNISolone SOD SUCC 40 MG/ML VL IV SCH (22:44)
[2025-04-02] VITALS (17 sets, daily range): BP systolic 136–169; BP diastolic 77–118; PULSE 60–81; RESP 16–20; TEMP 97.3–98.7; O2SAT 92–100
[2025-04-02] MEDS: METOPROLOL TARTRATE 25 MG TAB PO SCH (11:40)
--- NOTE | 2025-04-02 14:07 | DVHPN2 ---
Reviewed: H&P Changes from previous H/P or p: No Changes General: Per HPI Objective Vitals Vital Signs Date Time Temp Pulse Resp B/P (MAP) Pulse Ox O2 Delivery O2 Flow Rate FiO2 04/02/25 12:40 64 147/82 04/02/25 11:18 18 100 04/02/25 10:00 Nasal Cannula* 2 28 04/02/25 09:00 98.0 98.0 Intake/Output Intake and Output 04/02/25 07:00 Intake Total 450 ml Output Total 400 ml Balance 50 ml Intake Oral 450 ml Output Urine Total 400 ml # Voids 3 Exam General: Lucid, afebrile, mucosae are moist Cardiovascular: Normal S1 and S2. No murmurs, gallops or rubs Respiratory: Normal ventilation mechanics. Diffuse wheezing with coarse rhonchus predominantly on right base. Abdomen: Soft, nontender, no organomegaly, normal bowel sounds MSK/skin: Mobilizes 4 limbs. Skin is dry and warm Neurological: Oriented in 3 spheres. No motor no sensitive deficits. Pupils are isocoric and reactive Medications Current Medications Medications Dose Ordered Sig/Ian Route Start Time Stop Time Status Last Admin Dose Admin Acetaminophen 325 mg Q4HP PRN PO 03/31/25 13:00 Ondansetron HCl 4 mg Q4HP PRN IV 03/31/25 13:00 Morphine Sulfate 2 mg Q4HPRN PRN IV 03/31/25 13:00 Nitroglycerin 0.4 mg Q5MINP PRN SL 03/31/25 13:00 Morphine Sulfate 2 mg Q30M PRN IV 03/31/25 13:00 Cefepime HCl 50 ml @ 12.5 mls/hr Q8HR IV 03/31/25 14:00 Hold Sodium Chloride 1,000 ml @ 60 mls/hr [id number] IV 03/31/25 13:45 04/01/25 05:45 60 MLS/HR Ipratropium [place] 0.5 mg Q6HWA NEB 03/31/25 18:00 04/02/25 11:07 0.5 MG Levalbuterol HCl 0.625 mg Q6HR NEB 03/31/25 18:00 04/02/25 11:07 0.625 MG Enoxaparin Sodium 70 mg Q12HR SC 04/01/25 10:00 04/02/25 10:16 70 MG Methylprednisolone Sodium Succinate 40 mg BID IV 04/01/25 22:00 04/02/25 10:16 40 MG Amiodarone HCl 250 ml @ 16.66 mls/ hr Q15H1M IV 04/01/25 22:35 04/02/25 13:38 16.66 MLS/HR Levofloxacin/ Dextrose 150 ml @ 100 mls/hr DAILY IV 04/02/25 10:30 04/02/25 11:40 100 MLS/HR Metoprolol Tartrate 25 mg BID PO 04/02/25 10:30 04/02/25 11:40 25 MG Laboratory Results Laboratory Tests 04/01/25 04:48 Urinalysis Test 03/31/25 12:40 Urine Color Light-yellow (Yellow) Urine Clarity Clear (Clear) Urine pH 6.0 (5.0-9.0) Urine Specific [place] 1.017 (1.001-1.035) Urine Protein Negative (Negative) Urine Ketones Negative (Negative) Urine Blood 1+ /uL (Negative) H Urine Nitrite Negative (Negative) Urine Bilirubin Negative (Negative) Urine Urobilinogen Normal mg/dL (Negative) Urine Leukocyte Esterase Negative /uL (Negative) Urine RBC 7 /hpf (0 - 3) Urine Microscopic WBC 1 /HPF (0-3) Urine Squamous Epithelial Cells None seen /hpf (<5) Urine Bacteria None seen /hpf (None Seen) Urine Glucose 1+ mg/dL (Normal) H Microbiology Microbiology Date/Time Source Procedure Growth Status 03/31/25 21:08 Nose MRSA Screen - Final Complete 03/31/25 13:20 Blood Blood Culture - Preliminary NO GROWTH AFTER 48 HOURS OF INCUBATION. Resulted 03/31/25 12:40 Voided Urine Urine Culture - Final Complete Labs and/or images reviewed: Labs reviewed by me, Image(s) reviewed by me Assessment/Plan Assessment/Plan 60 year old male patient who presents to the ED with chief complaint of sudden dyspnea Functional Class IV which started approximately 24 hours, it has been constant, did not relieved with inhalers, prompting his visit to the ED. Patient reports associated chills, productive cough with yellow phlegm and hearing wheezing. Patient has had previous episodes similar to this one, but have been relieved by inhalers. Last hospitalization due to COPD exacerbation was over 10 years ago. Denies any other associated symptom. -Past medical history: Asthma/emphysema/COPD 04/02 - philip presented here with shortness of breath. Admission patient is having concerns for COPD with a ammonia. Pneumonitis. Also found to have rapid heart rate. SVT versus AF flutter. Cardiology consulted. Patient on amiodarone. We will try to switch patient from amiodarone beta-ojnathan Lopressor. Patient also UDS positive with meth. Possible SVT from meth. Cardiology consulted if no recommendations we will likely discharge patient. Needs restrain from smoking tobacco and other illicit drugs. homeless patient with dog in room, dog is excessively friendly. Diagnosis: Acute hypoxic respiratory failure due to below Pneumonia, Gram-negative Gram-positive possible CBD, in acute exacerbation, with pneumonitis Acute intoxication with methamphetamines Tachycardia, possible SVT due to above atrial flutter possible plan: Change antibiotics to Levaquin Stop amiodarone Start Lopressor Advise patient of quitting illicit drugs including methamphetamines Continue other home medications Tele Full code Plan discussed with: Patient My Orders Orders - WIN PATEL MD Procedure Category Date Status Time Levofloxacin 750mg PHA 04/02/25 In Process (Levaquin) 10:30 Metoprolol Tartrate PHA 04/02/25 In Process Tablet (Lopressor Ta 10:30 * Cardiology Consult CONS 04/02/25 Transmitted 13:44 * Local Sales Associate CONS 04/02/25 Transmitted Consult Date of Service: Apr 02, 2025 Billing Provider: WIN PATEL MD Common Visit Codes: [id number] INP/OBS CARE(HIGH) WIN PATEL MD Apr 02, 2025 14:07
--- NOTE | 2025-04-02 14:13 | DVHINCON2 ---
ALYSSA MANCIA [facility] 04/02/25 1413: Date Seen: Apr 02, 2025 Referring Physician MD Flavio Reason for Consultation Atrial flutter with RVR History of Present Illness This is a 60-year-old man who presented to the emergency room via EMS with a chief complaint of shortness of breath for one day. Upon EMS arrival the patient was found outside a gas station with vital signs indicating a systolic blood pressure in the 200s mmHg and tachycardic. He was provided with a breathing treatment EN route to the hospital and placed on oxygen supp lementation at 6 L/min via NC. He underwent a blood glucose level of 141 ng/dL. Upon arrival to the emergency room he underwent multiple 12 lead electrocardiogram revealing an atrial flutter rhythm with a conduction rate of 2:1 atrioventricular block up to 157 bpm. Was initially medicated with adenosine 6 mg and subsequently placed on an amiodarone drip per protocol. The patient successfully transitioned into a normal sinus rhythm within hours. At time of assessment, the patient denied any chest pain, palpitations, diaphoresis, or dizziness. Denies a previous history of cardiovascular disease or cardiac arrhythmias. Significant medical history includes asthma, emphysema, COPD, history of tobacco use including 30 pack-years, and longstanding methamphetamine use. Past Medical History Past medical history reviewed. No other significant than mentioned above. Past Surgical History Left knee Family History: Cancer G8 FATHER Family history: Cardiovascular disease G8 MOTHER Family History Family history reviewed. Not significant for cardiovascular disease. Social History Admits to a longstanding methamphetamine/cannabinoid use. Admits to history of tobacco use including 30 pack-years. Denies the use of alcohol. Allergies: Coded Allergies: Penicillins (Verified Allergy, Unknown, 06/05/15) Home Meds No Active Prescriptions or Reported Meds Home Meds Denies any active home medications. Current Medications Current Medications Medications (Trade) Dose Ordered Sig/Ian Route PRN Reason Start Time Stop Time Status Last Admin Methylprednisolone Sodium Succinate (Solu Medrol) 40 mg BID IV 04/01/25 22:00 04/02/25 10:16 Amiodarone HCl 250 ml @ 16.66 mls/ hr Q15H1M IV 04/01/25 22:45 04/01/25 22:35 DC Amiodarone HCl 250 ml @ 16.66 mls/ hr Q15H1M IV 04/01/25 22:35 12/1/25 13:38 Levofloxacin/ Dextrose 150 ml @ 100 mls/hr DAILY IV 04/02/25 10:30 04/02/25 11:40 Metoprolol Tartrate (Lopressor Tablet) 25 mg BID PO 04/02/25 10:30 04/02/25 11:40 Review of Systems Constitutional: No symptom reported Ears, Nose, & Throat: No symptom reported Eyes: No symptom reported Neurological: No symptoms reported Pulmonary/Respiratory: SOB Cardiovascular: No symptom reported Gastrointestinal: No symptom reported Genitourinary: No symptom reported Musculoskeletal: No symptom reported Skin: No symptom reported Psychiatric: No symptom reported Endocrine: No symptom reported Hemotologic/Lymphatic: No symptom reported Vital Signs Vital Signs Date Time Temp Pulse Resp B/P (MAP) Pulse Ox O2 Delivery O2 Flow Rate FiO2 04/02/25 12:40 64 147/82 04/02/25 11:18 18 100 04/02/25 10:00 Nasal Cannula* 2 28 04/02/25 09:00 98.0 98.0 Physical Exam General Appearance: Cooperative. Thin. Unkept. Service dog on bed Head Exam: Normal inspection Neck Exam: Normal inspection. Non-tender. Normal alignment Pulmonary/Respiratory: Chest non-tender. Diminished bilateral breath sounds Cardiovascular/Chest: Regular rate and rhythm. S1, S2. NSR. No murmurs. No JVD. Peripheral Pulses: 2+ Radial (R). 2+ Radial (L). 2+ Pedal (R). 2+ Pedal (L) Abdominal Exam: Normal bowel sounds Ankle Exam: Negative ankle edema Lower extremities: Negative lower extremity edema Neuro/Mental Status: A&O x3. Coherent, somewhat poor historian Thoughts/Psych: Normal thought pattern. Flat affect Appearance: In no acute distress Skin Exam: Normal inspection. Normal color. Warm. Dry Labs/Diagnostic Data Labs Test 04/01/25 04:48 03/31/25 21:08 03/31/25 15:41 03/31/25 12:40 Range/Units White Blood Count 9.3 # 4.4-10.8 10^3/uL Red Blood Count 4.43 L 4.5-5.90 10^6/uL Hemoglobin 14.0 13.5-17.5 g/dL Hematocrit 41.4 41.0-53.0 % Mean Corpuscular Volume 93.5 80.0-100.0 fL Mean Corpuscular Hemoglobin 31.7 28.0-32.0 pg Mean Corpuscular Hemoglobin Concent 33.9 32.0-36.0 g/dL Red Cell Distribution Width 13.5 11.8-14.3 % Platelet Count 279 140-450 10^3/uL Mean Platelet Volume 8.3 6.9-10.8 fL Neutrophils (%) (Auto) 92.5 H 37.0-80.0 % Lymphocytes (%) (Auto) 5.5 L 10.0-50.0 % Monocytes (%) (Auto) 1.9 0.0-12.0 % Eosinophils (%) (Auto) 0.0 0.0-7.0 % Basophils (%) (Auto) 0.1 0.0-2.0 % Neutrophils # (Auto) 8.6 1.6-8.6 10 ^3/uL Lymphocytes # (Auto) 0.5 0.4-5.4 10 ^3/uL Monocytes # (Auto) 0.2 0-1.3 10 ^3/uL Eosinophils # (Auto) 0 0-0.8 10 ^3/uL Basophils # (Auto) 0 0-0.2 10 ^3/uL Nucleated Red Blood Cells 0.0 % Sodium Level 137 136-145 mmol/L Potassium Level 4.1 3.5-5.1 mmol/L Chloride Level 102 98-107 mmol/L Carbon Dioxide Level 27 20-31 mmol/L Anion Gap 8 5-15 Blood Urea Nitrogen 13 9-23 mg/dL Creatinine 0.92 0.700-1.30 mg/dL Glomerular Filtration Rate Calc 96 >90 mL/min BUN/Creatinine Ratio 14.1 10.0-20.0 Serum Glucose 151 H 74-106 mg/dL Calcium Level 9.3 8.7-10.4 mg/dL Total Bilirubin 0.6 0.2-1.0 mg/dL Aspartate Amino Transferase (AST) 19 13-40 U/L Alanine Aminotransferase (ALT) 29 7-40 U/L Alkaline Phosphatase 80 46-116 U/L Total Protein 7.1 5.7-8.2 g/dL Albumin 4.1 3.2-4.8 g/dL Influenza Type A Antigen Negative Negative Influenza Type B Antigen Negative Negative SARS-CoV-2 Antigen (Rapid) Negative NEGATIVE Lactic Acid Level 1.2 0.4-2.0 mmol/L Urine Color Light-yellow Yellow Urine Clarity Clear Clear Urine pH 6.0 5.0-9.0 Urine Specific [place] 1.017 1.001-1.035 Urine Protein Negative Negative Urine Ketones Negative Negative Urine Blood 1+ H Negative /uL Urine Nitrite Negative Negative Urine Bilirubin Negative Negative Urine Urobilinogen Normal Negative mg/dL Urine Leukocyte Esterase Negative Negative /uL Urine RBC 7 0 - 3 /hpf Urine Microscopic WBC 1 0-3 /HPF Urine Squamous Epithelial Cells None seen <5 /hpf Urine Bacteria None seen None Seen /hpf Urine Glucose 1+ H Normal mg/dL Urine Opiates Screen Neg NEGATIVE Urine Fentanyl Screen Neg NEGATIVE Urine Barbiturates Screen Neg NEGATIVE Urine Phencyclidine Screen Neg NEGATIVE Urine Amphetamines Screen Pos NEGATIVE Urine Benzodiazepines Screen Neg NEGATIVE Urine Cocaine Screen Neg NEGATIVE Urine Cannabinoids Screen Pos NEGATIVE Test 03/31/25 11:03 Range/Units Prothrombin Time 10.9 9.3-11.8 sec Prothrombin Time INR 1.03 0.9-1.15 Activated Partial Thromboplast Time 29.5 24.5-34.5 SEC Hemoglobin A1c 5.6 <5.7 % A1C Phosphorus Level 2.5 2.4-5.1 mg/dL Magnesium Level 1.8 1.6-2.6 mg/dL Triglycerides Level 54 < 150 mg/dL Cholesterol Level 174 < 200 mg/dL LDL Cholesterol 61 < 100 mg/dL HDL Cholesterol 96 H 40-59 mg/dL Vitamin B12 Level 526 211-911 pg/mL Vitamin D 25-Hydroxy 33.9 30.0-100 ng/mL Thyroid Stimulating Hormone (TSH) 0.36 L 0.55-4.78 uIU/mL Microbiology Date/Time Source Procedure Growth Status 03/31/25 21:08 Nose MRSA Screen - Final Complete 03/31/25 13:20 Blood Blood Culture - Preliminary NO GROWTH AFTER 48 HOURS OF INCUBATION. Resulted 03/31/25 12:40 Voided Urine Urine Culture - Final Complete Assessment Sepsis with pneumonia Paroxysmal atrial flutter with rapid ventricular rate, now NSR Hypertension, newly diagnosed Prediabetes, newly diagnosed COPD exacerbation Acute methamphetamines/cannabinoid intoxication Plan/Recommendation (Dr. Strauss) A transthoracic echocardiogram revealed a LVEF of 60% with normal RV function, normal atria, and no severe valve abnormalities noted. Recommendations are to stop amiodarone drip and continue beta-jonathan with metoprolol XL. Avoid antiarrhythmic therapy given borderline sinus bradycardia in the 50s bpm. Transition from therapeutic Lovenox to DAOC therapy with Eliquis BID ([id number]- VASc Score 2 points, HAS-BLED Score 0 points). The patient can benefit from an outpatient event monitor. Follow-up with a primary footwear production machine operator within 3-4 weeks post-discharge. Strongly advised on polysubstance abuse cessation and medical compliance. Kindly call if in need of further recommendations. There is no further cardiac work-up indicated at this time. Thank you for allowing us to participate in this patient's care. This medical document was created using an electronic medical record system with voice recognition software and computerized dictation system. Although this document has been carefully reviewed, there might still be some phonetic and typographical errors. Occasional wrong-word or ``sound-alike substitutions may have occurred due to the inherent limitations of voice recognition software. These areas are purely typographical due to imperfections of the software programs and do not reflect any compromise in the patient's medical care. Please read the chart carefully and recognize, using context, where these substitutions have occurred. Plan discussed with: Patient, Other NYHA Physical activity limitations: NA Date of Service: Apr 02, 2025 Billing Provider: ALYSSA MANCIA Cardiology Common Codes: [id number] INP/OBS CARE (High) ARAVIND STRAUSS MD 04/02/25 1700: Family History: Cancer G8 FATHER Family history: Cardiovascular disease G8 MOTHER Allergies: Coded Allergies: Penicillins (Verified Allergy, Unknown, 06/05/15) Home Meds No Active Prescriptions or Reported Meds Plan/Recommendation PT SEEN WITH CV TEAM AGREE WITH DIGITAL MARKETING PROJECT MANAGER ASSESSMENT AND PLAN RECOMMEND DOAC AND BB ON DC PT IS SR MAY NOT TAKE MEDS HOWEVER, SOCIAL WORK CONSULT POOR PROGNOSIS GIVEN SOCIAL CONDITION Plan discussed with: Patient ALYSSA MANCIA Apr 02, 2025 14:13 ARAVIND STRAUSS MD Apr 02, 2025 17:00
[2025-04-02] MEDS: AMIODARONE HCL 200 MG TAB PO ONE (14:39)
[2025-04-02] MEDS: MAGNESIUM SULFATE 1GM/100ML 100 ML IV ONE (14:40)
[2025-04-02 16:23] LABS: Base Excess 4.5 mmol/L (-2.0-3.0)
[2025-04-02] MEDS: APIXABAN 5 MG TAB PO SCH (21:52)
[2025-04-03] VITALS (12 sets, daily range): BP systolic 112–154; BP diastolic 67–97; PULSE 57–73; RESP 16–20; TEMP 97.3–98.5; O2SAT 91–100
--- NOTE | 2025-04-03 07:38 | ECG ---
[facility] Test Date: 2025-03-31 Test Time: 14:58:46 Pat Name: NICOLE SHARMA Department: [facility] ED Patient ID: [facility]-[id number] Room: 0239T A Gender: M Grey Inspector: arpan : 1965 Requested By: HANNY WILSON Order Number: [id number] Reading MD: Keven Hobbs Measurements Intervals [place] Rate: 84 P: 28 DC: 147 QRS: 17 QRSD: 108 T: 60 QT: 381 QTc: 451 Interpretive Statements Sinus rhythm Baseline wander in lead(s) V1,V2,V3,V4,V5,V6 Electronically Signed On 04-03-2025 15:01:02 PST by Keven Hobbs Please click the below link to view image of tracing.
[2025-04-03] MEDS: LISINOPRIL 20 MG TAB PO SCH (08:38)
[2025-04-03] MEDS: METOPROLOL SUCCINATE XL 50 MG TAB PO SCH (08:39)
[2025-04-03] MEDS ORDERED: METOPROLOL SUCCINATE XL 50 MG TAB PO SCH (10:00)
--- NOTE | 2025-04-03 10:45 | DVHPN2 ---
Reviewed: H&P Changes from previous H/P or p: No Changes General: Per HPI Objective Vitals Vital Signs Date Time Temp Pulse Resp B/P (MAP) Pulse Ox O2 Delivery O2 Flow Rate FiO2 04/03/25 09:58 96 Nasal Cannula* 2 28 04/03/25 09:00 97.8 73 18 140/90 (107) 97.8 Intake/Output Intake and Output 04/03/25 07:00 Intake Total 780 ml Output Total 1105 ml Balance -325 ml Intake Oral 780 ml Output Urine Total 1105 ml # Voids 2 # Bowel Movements 1 Exam General: Lucid, afebrile, mucosae are moist Cardiovascular: Normal S1 and S2. No murmurs, gallops or rubs Respiratory: Normal ventilation mechanics. Diffuse wheezing with coarse rhonchus predominantly on right base. Abdomen: Soft, nontender, no organomegaly, normal bowel sounds MSK/skin: Mobilizes 4 limbs. Skin is dry and warm Neurological: Oriented in 3 spheres. No motor no sensitive deficits. Pupils are isocoric and reactive Medications Current Medications Medications Dose Ordered Sig/Ina Route Start Time Stop Time Status Last Admin Dose Admin Acetaminophen 325 mg Q4HP PRN PO 03/31/25 13:00 Ondansetron HCl 4 mg Q4HP PRN IV 03/31/25 13:00 Morphine Sulfate 2 mg Q4HPRN PRN IV 03/31/25 13:00 Nitroglycerin 0.4 mg Q5MINP PRN SL 03/31/25 13:00 Morphine Sulfate 2 mg Q30M PRN IV 03/31/25 13:00 Cefepime HCl 50 ml @ 12.5 mls/hr Q8HR IV 03/31/25 14:00 Hold Sodium Chloride 1,000 ml @ 60 mls/hr [id number] IV 03/31/25 13:45 04/03/25 08:44 60 MLS/HR Ipratropium [place] 0.5 mg Q6HWA NEB 03/31/25 18:00 04/03/25 06:39 0.5 MG Levalbuterol HCl 0.625 mg Q6HR NEB 03/31/25 18:00 04/03/25 06:38 0.625 MG Levofloxacin/ Dextrose 150 ml @ 100 mls/hr DAILY IV 04/02/25 10:30 04/03/25 08:38 100 MLS/HR Apixaban 5 mg BID PO 04/02/25 22:00 04/03/25 08:38 5 MG Metoprolol Succinate 50 mg DAILY PO 04/03/25 10:00 04/03/25 08:39 50 MG Lisinopril 20 mg DAILY PO 04/03/25 10:00 04/03/25 08:38 20 MG Methylprednisolone Sodium Succinate 40 mg DAILY IV 04/04/25 10:00 Laboratory Results Laboratory Tests 04/01/25 04:48 Urinalysis Test 03/31/25 12:40 Urine Color Light-yellow (Yellow) Urine Clarity Clear (Clear) Urine pH 6.0 (5.0-9.0) Urine Specific [place] 1.017 (1.001-1.035) Urine Protein Negative (Negative) Urine Ketones Negative (Negative) Urine Blood 1+ /uL (Negative) H Urine Nitrite Negative (Negative) Urine Bilirubin Negative (Negative) Urine Urobilinogen Normal mg/dL (Negative) Urine Leukocyte Esterase Negative /uL (Negative) Urine RBC 7 /hpf (0 - 3) Urine Microscopic WBC 1 /HPF (0-3) Urine Squamous Epithelial Cells None seen /hpf (<5) Urine Bacteria None seen /hpf (None Seen) Urine Glucose 1+ mg/dL (Normal) H Blood Gas Results Test 04/02/25 16:10 Arterial Blood pH 7.423 (7.350-7.450) FiO2 % 21.0 Microbiology Microbiology Date/Time Source Procedure Growth Status 03/31/25 21:08 Nose MRSA Screen - Final Complete 03/31/25 13:20 Blood Blood Culture - Preliminary NO GROWTH AFTER 48 HOURS OF INCUBATION. Resulted 03/31/25 12:40 Voided Urine Urine Culture - Final Complete Labs and/or images reviewed: Labs reviewed by me, Image(s) reviewed by me Assessment/Plan Assessment/Plan 60 year old male patient who presents to the ED with chief complaint of sudden dyspnea Functional Class IV which started approximately 24 hours, it has been constant, did not relieved with inhalers, prompting his visit to the ED. Patient reports associated chills, productive cough with yellow phlegm and hearing wheezing. Patient has had previous episodes similar to this one, but have been relieved by inhalers. Last hospitalization due to COPD exacerbation was over 10 years ago. Denies any other associated symptom. -Past medical history: Asthma/emphysema/COPD 04/02 - davontenet presented here with shortness of breath. Admission patient is having concerns for COPD with a ammonia. Pneumonitis. Also found to have rapid heart rate. SVT versus AF flutter. Cardiology consulted. Patient on amiodarone. We will try to switch patient from amiodarone beta-jonathan Lopressor. Patient also UDS positive with meth. Possible SVT from meth. Cardiology consulted if no recommendations we will likely discharge patient. Needs restrain from smoking tobacco and other illicit drugs. homeless patient with dog in room, dog is excessively friendly. 04/03: Planning for recuperative care with social. Placement we will need to have bedside out as patient isn't willing to go over his dog. We will follow up with social to see if there is any such placement available. Otherwise patient can continue steroids and antibiotics for pneumonia with COPD exacerbation. We will make Solu-Medrol 40 once daily IV. Continue Levaquin 750 daily. Continue scheduled nebulizers q.6 while awake. Diagnosis: Acute hypoxic respiratory failure due to below Pneumonia, Gram-negative Gram-positive possible CBD, in acute exacerbation, with pneumonitis Acute intoxication with methamphetamines Tachycardia, possible SVT due to above atrial flutter possible plan: Change antibiotics to Levaquin Stop amiodarone Start Lopressor Advise patient of quitting illicit drugs including methamphetamines Continue other home medications Tele Full code Plan discussed with: Patient My Orders Orders - WIN PATEL MD Procedure Category Date Status Time * Cardiology Consult CONS 04/02/25 Transmitted 13:44 * Chemistry Tutor CONS 04/02/25 Transmitted Consult Abg W/ Co-Ox RT 04/02/25 Logged 15:39 Methylprednisolone PHA 04/04/25 In Process Sod Succ (Solu Medrol 10:00 Date of Service: Apr 03, 2025 Billing Provider: WIN PATEL MD Common Visit Codes: [id number] INP/OBS CARE(HIGH) WIN PATEL MD Apr 03, 2025 10:45
[2025-04-03] MEDS ORDERED: METO-6 PO (15:07)
[2025-04-03] MEDS ORDERED: LEVO750T40 PO (15:07)
[2025-04-03] MEDS ORDERED: LISI20TA56 PO (15:07)
[2025-04-03] MEDS ORDERED: APIX5TAB PO (15:07)
[2025-04-03] MEDS ORDERED: PRED20TA2 PO (15:07)
[2025-04-03] MEDS ORDERED: ALBUAER3 IN (15:08)
--- NOTE | 2025-04-03 15:14 | DVHDS2 ---
Discharge Summary Date of Admission Mar 31, 2025 at 12:52 Date of Discharge: Apr 03, 2025 Labs/Diagnostic Data: Laboratory Results Test 04/02/25 16:10 04/01/25 04:48 03/31/25 21:08 03/31/25 15:41 Blood Gas Specimen Type Arterial Blood Gas Sample Site Right radial Blood Gas Patient Temperature 37.0 Arterial Blood Date Drawn [id number] Arterial Blood pH 7.423 (7.350-7.450) Arterial Blood Partial Pressure CO2 46.6 mmHg (35.0-48.0) Arterial Blood Partial Pressure O2 64.4 mmHg (83.0-108.0) Arterial Blood HCO3 29.8 mmol/L (21.0-28.0) Arterial Blood Oxygen Saturation 92.2 % (94.0-98.0) Arterial Blood Base Excess 4.5 mmol/L (-2.0-3.0) Arterial Blood Oxyhemoglobin 91.1 % (94.0-98.0) Arterial Blood Carboxyhemoglobin 0.9 % (0.5-1.5) Arterial Blood Methemoglobin 0.3 % (0.0-1.5) Arterial Blood Deoxyhemoglobin 7.7 % (0.0-5.0) Yonathan Test Yes Blood Gas Total Hemoglobin 13.60 g/dL (13.5-17.5) Blood Gas Modality Room air FiO2 % 21.0 White Blood Count 9.3 10^3/uL (4.4-10.8) Red Blood Count 4.43 10^6/uL (4.5-5.90) Hemoglobin 14.0 g/dL (13.5-17.5) Hematocrit 41.4 % (41.0-53.0) Mean Corpuscular Volume 93.5 fL (80.0-100.0) Mean Corpuscular Hemoglobin 31.7 pg (28.0-32.0) Mean Corpuscular Hemoglobin Concent 33.9 g/dL (32.0-36.0) Red Cell Distribution Width 13.5 % (11.8-14.3) Platelet Count 279 10^3/uL (140-450) Mean Platelet Volume 8.3 fL (6.9-10.8) Neutrophils (%) (Auto) 92.5 % (37.0-80.0) Lymphocytes (%) (Auto) 5.5 % (10.0-50.0) Monocytes (%) (Auto) 1.9 % (0.0-12.0) Eosinophils (%) (Auto) 0.0 % (0.0-7.0) Basophils (%) (Auto) 0.1 % (0.0-2.0) Neutrophils # (Auto) 8.6 10 ^3/uL (1.6-8.6) Lymphocytes # (Auto) 0.5 10 ^3/uL (0.4-5.4) Monocytes # (Auto) 0.2 10 ^3/uL (0-1.3) Eosinophils # (Auto) 0 10 ^3/uL (0-0.8) Basophils # (Auto) 0 10 ^3/uL (0-0.2) Nucleated Red Blood Cells 0.0 % Sodium Level 137 mmol/L (136-145) Potassium Level 4.1 mmol/L (3.5-5.1) Chloride Level 102 mmol/L (98-107) Carbon Dioxide Level 27 mmol/L (20-31) Anion Gap 8 (5-15) Blood Urea Nitrogen 13 mg/dL (9-23) Creatinine 0.92 mg/dL (0.700-1.30) Glomerular Filtration Rate Calc 96 mL/min (>90) BUN/Creatinine Ratio 14.1 (10.0-20.0) Serum Glucose 151 mg/dL (74-106) Calcium Level 9.3 mg/dL (8.7-10.4) Total Bilirubin 0.6 mg/dL (0.2-1.0) Aspartate Amino Transferase (AST) 19 U/L (13-40) Alanine Aminotransferase (ALT) 29 U/L (7-40) Alkaline Phosphatase 80 U/L (46-116) Total Protein 7.1 g/dL (5.7-8.2) Albumin 4.1 g/dL (3.2-4.8) Influenza Type A Antigen Negative (Negative) Influenza Type B Antigen Negative (Negative) SARS-CoV-2 Antigen (Rapid) Negative (NEGATIVE) Lactic Acid Level 1.2 mmol/L (0.4-2.0) Test 03/31/25 12:40 03/31/25 11:03 Urine Color Light-yellow (Yellow) Urine Clarity Clear (Clear) Urine pH 6.0 (5.0-9.0) Urine Specific [place] 1.017 (1.001-1.035) Urine Protein Negative (Negative) Urine Ketones Negative (Negative) Urine Blood 1+ /uL (Negative) Urine Nitrite Negative (Negative) Urine Bilirubin Negative (Negative) Urine Urobilinogen Normal mg/dL (Negative) Urine Leukocyte Esterase Negative /uL (Negative) Urine RBC 7 /hpf (0 - 3) Urine Microscopic WBC 1 /HPF (0-3) Urine Squamous Epithelial Cells None seen /hpf (<5) Urine Bacteria None seen /hpf (None Seen) Urine Glucose 1+ mg/dL (Normal) Urine Opiates Screen Neg (NEGATIVE) Urine Fentanyl Screen Neg (NEGATIVE) Urine Barbiturates Screen Neg (NEGATIVE) Urine Phencyclidine Screen Neg (NEGATIVE) Urine Amphetamines Screen Pos (NEGATIVE) Urine Benzodiazepines Screen Neg (NEGATIVE) Urine Cocaine Screen Neg (NEGATIVE) Urine Cannabinoids Screen Pos (NEGATIVE) Prothrombin Time 10.9 sec (9.3-11.8) Prothrombin Time INR 1.03 (0.9-1.15) Activated Partial Thromboplast Time 29.5 SEC (24.5-34.5) Hemoglobin A1c 5.6 % A1C (<5.7) Phosphorus Level 2.5 mg/dL (2.4-5.1) Magnesium Level 1.8 mg/dL (1.6-2.6) Triglycerides Level 54 mg/dL (< 150) Cholesterol Level 174 mg/dL (< 200) LDL Cholesterol 61 mg/dL (< 100) HDL Cholesterol 96 mg/dL (40-59) Vitamin B12 Level 526 pg/mL (211-911) Vitamin D 25-Hydroxy 33.9 ng/mL (30.0-100) Thyroid Stimulating Hormone (TSH) 0.36 uIU/mL (0.55-4.78) Other Laboratory Tests 04/01/25 04:48 Brief Hx & Hospital Course: 60 year old male patient who presents to the ED with chief complaint of sudden dyspnea Functional Class IV which started approximately 24 hours, it has been constant, did not relieved with inhalers, prompting his visit to the ED. Patient reports associated chills, productive cough with yellow phlegm and hearing wheezing. Patient has had previous episodes similar to this one, but have been relieved by inhalers. Last hospitalization due to COPD exacerbation was over 10 years ago. Denies any other associated symptom. -Past medical history: Asthma/emphysema/COPD 04/02 - philip presented here with shortness of breath. Admission patient is having concerns for COPD with a ammonia. Pneumonitis. Also found to have rapid heart rate. SVT versus AF flutter. Cardiology consulted. Patient on amiodarone. We will try to switch patient from amiodarone beta-jonathan Lopressor. Patient also UDS positive with meth. Possible SVT from meth. Cardiology consulted if no recommendations we will likely discharge patient. Needs restrain from smoking tobacco and other illicit drugs. homeless patient with dog in room, dog is excessively friendly. 04/03: Planning for recuperative care with social. Placement we will need to have bedside out as patient isn't willing to go over his dog. We will follow up with social to see if there is any such placement available. Otherwise patient can continue steroids and antibiotics for pneumonia with COPD exacerbation. We will make Solu-Medrol 40 once daily IV. Continue Levaquin 750 daily. Continue scheduled nebulizers q.6 while awake. abg checked, no oxygen requirement paO2>60. Diagnosis: Acute hypoxic respiratory failure due to below , resolved sepsis, due to below acute Pneumonia, Gram-negative Gram-positive possible acute COPD, in acute exacerbation, with pneumonitis Tachycardia, due to below, resolved Paroxysmal atrial flutter with rapid ventricular rate, require anticoagulation with DOAC eliquis Acute intoxication with methamphetamines polysubstance abuse, THC and methamphetamines Hypertension, newly diagnosed Prediabetes, newly diagnosed plan: - levaquin 750mg daily for 5 days - Prednisone 40 mg daily for 5 days - avoid use of any illicit drugs (speed/methamphetamine). - Start Toprol-XL 50 mg daily, Eliquis 5 mg twice daily. - Continue taking other home medications lisinopril 20 mg daily, - continue nebulizers as prescribed by primary provider PCP - follow up with PCP to review discharge Condition at Discharge: Fair Final Diagnosis/Problems List Acute hypoxic respiratory failure due to below , resolved sepsis, due to below acute Pneumonia, Gram-negative Gram-positive possible acute COPD, in acute exacerbation, with pneumonitis Tachycardia, due to below, resolved Paroxysmal atrial flutter with rapid ventricular rate, require anticoagulation with DOAC eliquis Acute intoxication with methamphetamines polysubstance abuse, THC and methamphetamines Hypertension, newly diagnosed Prediabetes, newly diagnosed Discharge Disposition: Home Discharge Instruct/Medications No Active Prescriptions or Reported Meds Discharge Statement: "Patient was advised to return to the ER or call 911 if any headaches, dizziness, shortness of breath, chest pain, abdominal pain, bleeding, fevers, or worsening of medical condition. Patient was counseled about treatment plan, medications, possible side effects, patientverbalized understanding. All questions were answered to the best of my ability. This discharge took greater then 30 minutes in planning, reviewing documentation, counseling the patient, and discussing with other team members." ASSESSMENT ASSESSMENT Assessment Date of Service: Apr 03, 2025 Billing Provider: WIN PATEL MD Common Visit Codes: [id number] DISCH DAY >30min WIN PATEL MD Apr 03, 2025 15:14
[2025-04-03] MEDS ORDERED: LEVALBUTEROL HCL 1.25 MG/3 ML NEB ONE (18:32)
[2025-04-03] MEDS ORDERED: IPRATROPIUM BROM 0.5 MG/2.5ML INH SOL ONE (18:33)
[2025-04-04] MEDS ORDERED: methylPREDNISolone SOD SUCC 40 MG/ML VL IV SCH (10:00)
--- NOTE | 2025-04-06 12:13 | ECG ---
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
--- NOTE | 2025-04-06 12:14 | ECG ---
[facility] Test Date: 2025-03-31 Test Time: 10:24:56 Pat Name: NICOLE SHARMA Department: [facility] ED Patient ID: [facility]-[id number] Room: 0239T A Gender: M Chief Strategy Officer: JOE : 1965 Requested By: ANGIE SANON Order Number: [id number] Reading MD: Keven Hobbs Measurements Intervals [place] Rate: 157 P: 0 WI: 0 QRS: -84 QRSD: 89 T: 20 QT: 347 QTc: 561 Interpretive Statements Atrial flutter with predominant 2:1 AV block Left anterior fascicular block RSR' in V1 or V2, right VCD or RVH Nonspecific T abnormalities, diffuse leads Minimal ST elevation, lateral leads Prolonged QT interval Baseline wander in lead(s) V3 Electronically Signed On 04-12-2025 18:33:04 PST by Keven Hobbs Please click the below link to view image of tracing.
== END 2025-04-03 18:14 | disposition home or self-care (01) | DRG 812 ==
LOC: ER 09:35 → EDBD 09:35 → OVERFLOW 12:52 → TELE-EAST 23:36
PROVIDERS: ADMIT Student in an Organized Health Care Education/Training Program; ATTEND Student in an Organized Health Care Education/Training Program
DX: T43.651A Poisoning by methamphetamines accidental (unintentional), initial encounter (principal); A41.50 Gram-negative sepsis, unspecified; J96.01 Acute respiratory failure with hypoxia; J15.69 Pneumonia due to other Gram-negative bacteria; E87.20 Acidosis, unspecified; I48.0 Paroxysmal atrial fibrillation; J44.0 Chronic obstructive pulmonary disease with (acute) lower respiratory infection; F15.129 Other stimulant abuse with intoxication, unspecified; I10 Essential (primary) hypertension; Z59.00 Homelessness unspecified; Z20.822 Contact with and (suspected) exposure to COVID-19; I48.92 Unspecified atrial flutter; J44.1 Chronic obstructive pulmonary disease with (acute) exacerbation; J43.9 Emphysema, unspecified; R73.03 Prediabetes; J98.4 Other disorders of lung; F12.10 Cannabis abuse, uncomplicated; Z80.3 Family history of malignant neoplasm of breast; Z88.0 Allergy status to penicillin; Z87.891 Personal history of nicotine dependence; Z82.49 Family history of ischemic heart disease and other diseases of the circulatory system; Y92.89 Other specified places as the place of occurrence of the external cause
CPT/HCPCS: 36415; 36600; 71045; 71275; 80053; 80061; 80307; 81001; 82306; 82607; 82805; 83036; 83605; 83735; 84100; 84443; 85025; 85610; 85730; 87040; 87081; 87086; 87426; 87804; 93005; 93306; 94640; 96365; 96372; 96375; 99291; 99292; G0378; J0153; J1956